=== PATIENT | female | born 1945 | race Caucasian/White ===

== ENCOUNTER → 2017-09-01 | Outpatient (CLI) | payer MEDICARE ==
[~2017-09-01] MED LIST: ASPI81TA23 PO; CALCTAB33 PO; CENTCHW4 CHEW; METO25TA3 PO; PREN29TA PO; PSYL575P2 PO; SYNT112T PO
[2017-09-01 09:50] LABS: PROTHROMBIN TIME - PATIENT 10.1 SEC (9.8-11.6)
[2017-09-01 09:52] LABS: BASOPHIL # 0.1 TH/MM3 (0-0.2); BASOPHIL % 1.4 % (0.0-2.0); EOSINOPHIL # 0.4 TH/MM3 (0-0.4); EOSINOPHIL % 5.1 % (0.0-4.0); HEMATOCRIT 36.4 % (35.0-46.0); HEMOGLOBIN 12.2 GM/DL (11.6-15.3); LYMPHOCYTE # 2.2 TH/MM3 (1.0-4.8); MEAN CELL VOLUME 90.6 FL (80.0-100.0); MEAN CORPUSCULAR HEMOGLOBIN 30.4 PG (27.0-34.0); MEAN CORPUSCULAR HGB CONC 33.6 % (32.0-36.0); MONO % 10.1 % (0.0-8.0); MONOCYTE # 0.9 TH/MM3 (0-0.9); NEUT % 58.4 % (16.0-70.0); PLATELET COUNT 237 TH/MM3 (150-450); RED BLOOD COUNT 4.01 MIL/MM3 (4.00-5.30); RED CELL DISTRIBUTION WIDTH 14.2 % (11.6-17.2); WHITE BLOOD COUNT 8.6 TH/MM3 (4.0-11.0)
[2017-09-01 10:13] LABS: BICARBONATE 30.2 MEQ/L (21.0-32.0); CALCIUM 8.8 MG/DL (8.5-10.1); CREATININE 1.01 MG/DL (0.50-1.00)
[2017-09-01 10:47] LABS: BACTERIA, URINE RARE /hpf; BILIRUBIN, URINE NEG (NEG); BLOOD, URINE NEG (NEG); GLUCOSE,URINE NEG (NEG); KETONE, URINE NEG (NEG); MUCUS URINE FEW /lpf (OCC); NITRITE,URINE NEG (NEG); PH, URINE 5.5 (5.0-8.5); SQUAMOUS EPITHELIAL CELL URINE <1 /hpf (0-5); URINE COLOR YELLOW (YELLW/STRAW); URINE LEUKOCYTE ESTERASE NEG (NEG)
== END ==
LOC: CPRE 08:08
PROVIDERS: ATTEND Orthopaedic Surgery Orthopaedic Surgery of the Spine
DX: Z01.812 Encounter for preprocedural laboratory examination (principal); M17.11 Unilateral primary osteoarthritis, right knee; Z01.818 Encounter for other preprocedural examination; E03.9 Hypothyroidism, unspecified; Z87.440 Personal history of urinary (tract) infections
CPT/HCPCS: 36415; 80048; 81001; 85025; 85610; 85730; 87086

== ENCOUNTER → 2017-09-01 | Outpatient (CLI) | payer MEDICARE ==
[2017-09-01 10:23] LABS: FREE T4 1.15 NG/DL (0.76-1.46)
== END ==
LOC: CLAB 08:22
PROVIDERS: ATTEND Family Medicine
DX: Z01.818 Encounter for other preprocedural examination (principal); E03.9 Hypothyroidism, unspecified; Z87.440 Personal history of urinary (tract) infections
CPT/HCPCS: 84439; 84443

== ENCOUNTER 2017-09-12 07:47 | Inpatient (IN) | payer MEDICARE ==
[~2017-09-12] VITALS: Ht 162.6 cm; Wt 79.2 kg
[2017-09-12] MEDS ORDERED: METOPROLOL TARTRATE 25 MG TAB PO PRN (08:45)
[2017-09-12] MEDS ORDERED: SODIUM CHLORIDE 0.9% IV SCH (08:45)
[2017-09-12] MEDS ORDERED: LACTATED RINGER'S 1000 ML IV PRN (08:45)
[2017-09-12] MEDS ORDERED: SODIUM CHLORID 0.9% 500 ML IV PRN (08:45)
[2017-09-12] MEDS ORDERED: INSULIN HUMAN REGULAR 1,000 UNITS/10 ML VIAL SQ PRN (08:45)
[2017-09-12] MEDS ORDERED: VANCOMYCIN 1 GM/200 ML PREMIX IV SCH (08:45)
[2017-09-12] MEDS ORDERED: TRANEXAMIC ACID IV SCH (08:45)
[2017-09-12] MEDS ORDERED: POVIDONE IODINE 5% (ANTISEPSIS KIT) 4 APPLICATIONS EACH NARE PRN (08:45)
[2017-09-12] MEDS ORDERED: ceFAZolin 2 GM PREMIX 50 ML IV SCH (08:45)
[2017-09-12] MEDS ORDERED: EXPAREL PERI-ARTICULAR INJECTION (TOTAL VOL. 60 ML) P-ARTICULR SCH ×2 (08:45)
[2017-09-12] MEDS ORDERED: ACETAMINOPHEN 1000 MG/100 ML 100 ML IV ONE (10:03)
[2017-09-12] MEDS ORDERED: SODIUM CHLORIDE 0.9% 20 ML VIAL ONE (10:18)
[2017-09-12] MEDS ORDERED: GENTAMICIN SULFATE 80 MG/2 ML VIAL ONE (10:18)
[2017-09-12] MEDS ORDERED: ONDANSETRON HCL 4 MG/2 ML VIAL IV ONE (12:00)
[2017-09-12] MEDS ORDERED: SUCCINYLCHOLINE CHLORIDE 100 MG/5 ML SYRINGE IV PUSH ONE (12:00)
[2017-09-12] MEDS ORDERED: PROPOFOL 200 MG/20 ML AMP IV ONE (12:00)
[2017-09-12] MEDS ORDERED: NEOSTIGMINE 5 MG/5 ML SYRINGE IV PUSH ONE (12:00)
[2017-09-12] MEDS ORDERED: GLYCOPYRROLATE 1 MG/5 ML SYRINGE IV PUSH ONE (12:00)
[2017-09-12] MEDS ORDERED: DEXAMETHASONE SOD PHOS 4 MG/ML VIAL IV ONE (12:00)
[2017-09-12] MEDS ORDERED: ePHEDrine/NS 25 MG/5 ML SYRINGE IV ONE (12:00)
[2017-09-12] MEDS ORDERED: ROCURONIUM INJ 50 MG/5 ML SYRINGE IV PUSH ONE (12:00)
[2017-09-12] MEDS ORDERED: LIDOCAINE HCL 1% PF 5 ML SYRINGE OTHER ONE (12:00)
[2017-09-12] MEDS ORDERED: BUPIVACAINE HCL PF 0.25% 30 ML VIAL INFIL ONE (12:11)
--- NOTE | 2017-09-12 13:44 | PD.OP ---
cc: Ruddy Mao MD Operative Report Date of Surgery: September 12, 2017 Preoperative Diagnosis: Osteoarthritis right knee. Varus deformity right knee Postoperative Diagnosis: Same Procedure: Right total knee replacement arthroplasty, posterior stabilized Anesthesia: General with local for regional pain control Surgeon: Ruddy Mao Vest Presser(s): LIDYA Zacarias Operation and Findings: EBL: 50 INDICATION: This patient presents with long-standing arthritis of the knee. She also has a significant 12 varus deformity with subluxation of the tibia and some widening of the lateral joint line with the deformity attachment record documents conservative measures. The patient now presents for surgical treatment. NOTE: Yael Zacarias PA-C was present for the entire surgical procedure as my first line production supervisor. In my medical opinion her skill and care was necessary for proper management of this patient. TOURNIQUET TIME: 67 minutes COMPANY: [employer] FEMUR: Size 6, posterior stabilized TIBIA: Size 5, fixed-bearing PATELLA: 32 mm POLYETHYLENE INSERT: 12 mm PROCEDURE: This patient was brought the operating room and anesthetized in the supine position. The patient was positioned supine on the table. The tourniquet was placed about the thigh, and the leg was scrubbed with alcohol followed by Hibiclens followed by ChloraPrep and draped sterilely. A timeout was done, and antibiotics were given. After exsanguination the tourniquet was inflated to 250 mmHg. An anterior incision was made and a median parapatellar arthrotomy was performed. The patella was released laterally and subluxed allowing freehand cut of the patella which was then sized. A metal cap was placed over the exposed patellar surface for protection. A rotor pilot hole was placed in the distal femur allowing a 6 valgus cut removing 10 mm from the distal femur. Anterior posterior and chamfer cuts were made. The posterior stabilize osteotomy was made. The attention was directed to the tibia. Retractors were positioned. The external alignment guide was used allowing the lateral tibia to be used as referencing guide and cut utilizing an oscillating saw taking care to avoid any injury to the surrounding soft tissues. This was sized properly. We needed to do a extended medial and posterior medial release because of the fixed varus deformity. Trial reduction showed that the insert fit nicely. The patient had range of motion extension 0 flexion 125 . A medial release was necessary. The bony surfaces prepared. On the back table 2 packets of methylmethacrylate were mixed. The components were cemented. Excess cement was removed. The tourniquet let down and hemostasis was controlled. The final plastic insert was inserted. Range of motion was the same as previously noted. A drain was brought through a separate stab incision. The arthrotomy was repaired with interrupted #1 Vicryl suture, subcutaneous tissue 2-0 Vicryl suture and skin with metallic lamin A sterile dressing was applied. Sponge counts, needle counts and instrument counts were all correct. The patient tolerated procedure well and was taken to recovery in satisfactory condition. FINDINGS: There was evidence of a significant deformity to the patient's tibia and a varus deformity as result of the long-standing disease. A medial and posterior medial release was necessary to allow correction of the deformity. The final alignment appeared to be excellent Ruddy Mao MD September 12, 2017 13:44
[2017-09-12] MEDS ORDERED: NURSING INFORMATION XX PRN (13:45)
[2017-09-12] MEDS ORDERED: NALOXONE HCL 0.4 MG/ML AMP IV PUSH PRN (13:45)
[2017-09-12] MEDS ORDERED: PHARMACY INFORMATION XX ONE (13:45)
[2017-09-12] MEDS ORDERED: MORPHINE SULFATE 8 MG/ML INJ IM PRN (13:45)
[2017-09-12] MEDS ORDERED: Post-op Orders (for Pharmacy) XX ONE (13:45)
[2017-09-12] MEDS ORDERED: ECASA81 PO (13:52)
[2017-09-12] MEDS ORDERED: OXYC1TAB63 PO (13:52)
[2017-09-12] MEDS ORDERED: DO NOT ADM ANY ANTICOAGULANT DRUGS PRN (14:10)
[2017-09-12] MEDS ORDERED: MIDAZOLAM HCL 2 MG/2 ML VIAL ONE (14:25)
[2017-09-12] MEDS ORDERED: *morphine SULFATE 4 MG/ML PERIprocedure ONLY ONE ×2 (14:29→14:52)
--- NOTE | 2017-09-12 14:58 | RADRPT ---
EXAM DATE/TIME: 09/12/2017 15:32 [facility] COMPARISON: No previous studies available for comparison. INDICATIONS : Post-op right knee. MEDICAL HISTORY : None. SURGICAL HISTORY : None. ENCOUNTER: Initial ACUITY: 1 day PAIN SCORE: 0/10 LOCATION: Right Knee. FINDINGS: 2 views of the knee status post total knee arthroplasty demonstrate no the osseous structures. The t ibial component is cemented. Multiple skin lamin. Superficial and deep soft tissue gas. No metal lic foreign bodies. CONCLUSION: Expected postsurgical findings status post total knee arthroplasty. Neptali Silva MD on September 12, 2017 at 14:55 Board Certified Radiologist. This report was verified electronically.
[2017-09-12] MEDS ORDERED: ASPIRIN EC 81 MG TABEC PO ONE (15:00)
[2017-09-12] MEDS: LACTATED RINGER'S 1000 ML INJ 1,000 ML IV SCH (15:24)
[2017-09-12] MEDS ORDERED: ASPIRIN 81 MG CHEW TAB ONE (15:25)
[2017-09-12] MEDS ORDERED: *ONDANSETRON 4 MG VIAL PERIprocedural Use ONLY ONE (16:19)
[2017-09-12] MEDS ORDERED: ceFAZolin INJ 1,000 MG VIAL ONE (16:34)
[2017-09-12 17:02] VITALS: BP 130/55; PULSE 67; RESP 18; TEMP 95.4; O2SAT 97
[2017-09-12] MEDS: oxyCODONE/ACETAMINOPHEN 5 MG/325 MG TAB PO PRN (17:09)
[2017-09-12 20:00] VITALS: BP 130/60; PULSE 74; RESP 20; TEMP 97.7; O2SAT 93
[2017-09-12] MEDS: SENNOSIDES 8.6 MG TAB PO SCH (20:09)
[2017-09-12] MEDS: ASPIRIN EC 81 MG TABEC PO SCH (20:10)
[2017-09-12] MEDS: METOPROLOL TARTRATE 25 MG TAB PO SCH (20:10)
[2017-09-12] MEDS: MAGNESIUM HYDROXIDE SUSP 30 ML CUP PO SCH (20:11)
[2017-09-12] MEDS ORDERED: TEMAZEPAM 15 MG CAP PO PRN (21:00)
[2017-09-13] VITALS: BP 122/60; PULSE 78; RESP 20; TEMP 97.9; O2SAT 95
[2017-09-13] MEDS: LACTATED RINGER'S 1000 ML INJ 1,000 ML IV SCH ×2 (01:13→16:30)
[2017-09-13 04:00] VITALS: BP 110/51; PULSE 78; RESP 20; TEMP 98; O2SAT 94
[2017-09-13] MEDS: LEVOTHYROXINE SODIUM 112 MCG TAB PO SCH (05:10)
[2017-09-13] MEDS: oxyCODONE/ACETAMINOPHEN 5 MG/325 MG TAB PO PRN ×2 (05:10→11:08)
[2017-09-13 07:01] LABS: HEMATOCRIT 31.8 % (35.0-46.0); HEMOGLOBIN 10.6 GM/DL (11.6-15.3)
[2017-09-13] MEDS: METOPROLOL TARTRATE 25 MG TAB PO SCH ×2 (08:03→20:49)
[2017-09-13] MEDS: ASPIRIN EC 81 MG TABEC PO SCH ×2 (08:04→20:49)
[2017-09-13] MEDS: MAGNESIUM HYDROXIDE SUSP 30 ML CUP PO SCH ×2 (08:04→20:49)
[2017-09-13 08:15] VITALS: BP 103/47; PULSE 68; RESP 16; TEMP 98.4; O2SAT 94
[2017-09-13] MEDS ORDERED: WALKER WHEELS/F1 MIS (08:33)
[2017-09-13] MEDS ORDERED: COMMODE 3-IN-11 MIS (08:34)
--- NOTE | 2017-09-13 08:35 | HHI.DCPOC ---
Discharge Care Plan Diagnosis: (1) Osteoarthritis of right knee Your Health Problems Are: Difficulty with ADL Incision/Drains Swelling Goals to Promote Your Health * To prevent worsening of your condition and complications * To maintain your health at the optimal level Directions to Meet Your Goals Take your medications as prescribed Follow your dietary instruction Follow activity as directed Keep your appointments as scheduled Take your immunizations and boosters as scheduled If your symptoms worsen call your PCP, if no PCP go to Urgent Care Center or Emergency Room Smoking is Dangerous to Your Health. Avoid second hand smoke Call the 24-hour hour crisis hotline for domestic abuse at Yarelis Huddleston September 13, 2017 08:34
[2017-09-13] MEDS ORDERED: INFLUENZA VIRUS VACCINE (QUADRIVALENT) 0.5 ML SYR IM ONE (10:00)
[2017-09-13 12:24] VITALS: BP 94/47; PULSE 61; RESP 18; TEMP 97.8; O2SAT 94
--- NOTE | 2017-09-13 13:02 | PD.ORT.PN ---
Subjective Subjective Remarks Sleeping when I enter the room. Moderate right knee pain. She states her ' buttocks aches'. No other concerns. No new CP or SOB. Objective Vitals Vital Signs Date Time Temp Pulse Resp B/P (MAP) Pulse Ox O2 Delivery O2 Flow Rate FiO2 09/13/17 12:24 97.8 61 18 94/47 (63) 94 09/13/17 12:17 17 09/13/17 08:15 98.4 68 16 103/47 (65) 94 09/13/17 04:00 98.0 78 20 110/51 (70) 94 09/13/17 00:00 97.9 78 20 122/60 (80) 95 09/12/17 20:00 97.7 74 20 130/60 (83) 93 09/12/17 17:02 95.4 67 18 130/55 (80) 97 09/12/17 16:45 97.8 86 16 127/58 (81) 98 Nasal Cannula 2 09/12/17 16:00 84 17 133/63 (86) 98 Nasal Cannula 2 09/12/17 15:30 69 17 125/60 (81) 98 Nasal Cannula 2 09/12/17 15:00 67 18 123/58 (79) 99 Nasal Cannula 2 09/12/17 14:45 63 17 126/56 (79) 97 Nasal Cannula 2 09/12/17 14:30 61 15 128/60 (82) 98 Nasal Cannula 2 09/12/17 14:15 68 16 132/62 (85) 98 Nasal Cannula 2 09/12/17 14:08 97.6 78 15 135/62 (86) 98 Nasal Cannula 2 I/O 09/12/17 09/12/17 09/12/17 09/13/17 09/13/17 09/13/17 07:00 15:00 23:00 07:00 15:00 23:00 Intake Total 700 ml 175 ml 300 ml Output Total 50 ml 0 ml Balance 650 ml 175 ml 300 ml Intake Oral 300 ml IV Total 175 ml Other 700 ml Output Urine Total 0 ml Estimated Blood Loss 50 ml Result Diagram: 09/13/17 0614 Imaging Last 24 hours Impressions Knee X-Ray 09/12/17 5634 Signed Impressions: Service Date/Time: Tuesday, September 12, 2017 15:32 - CONCLUSION: Expected postsurgical findings status post total knee arthroplasty. Neptali Silva MD Objective Remarks Laying in bedside chair NAD, sleeping VSS RLE Knee dressing c/d/i, no obvious drainage, mild swelling, no erythema +motor at distal, +sens, +nvi Neg homans Assessment & Plan Ortho Post Op Day #: 1 Problem List: Assessment and Plan pod#1 s/p R TKA Ortho stable. Pain moderately controlled. Continue po meds. ASA 81mg PT - WBAT RLE. I highly encouraged walking as her daughter stated yesterday that she is very sedentary. R TKA protocol Hold dressing changes unless saturated. IS encouraged. D/C planning, rehab monday. Yarelis Huddleston September 13, 2017 13:02
[2017-09-13 16:18] VITALS: BP 112/55; PULSE 67; RESP 17; TEMP 98.4; O2SAT 93
[2017-09-13 19:52] VITALS: BP 108/56; PULSE 73; RESP 17; TEMP 98.7; O2SAT 94
[2017-09-13] MEDS: SENNOSIDES 8.6 MG TAB PO SCH (20:49)
[2017-09-14] VITALS: BP 109/54; PULSE 73; RESP 20; TEMP 98.1; O2SAT 94
[2017-09-14] MEDS: LEVOTHYROXINE SODIUM 112 MCG TAB PO SCH (05:49)
[2017-09-14] MEDS: LACTATED RINGER'S 1000 ML INJ 1,000 ML IV SCH (05:54)
[2017-09-14 07:38] VITALS: BP 121/58; PULSE 88; RESP 18; TEMP 99.9; O2SAT 91
--- NOTE | 2017-09-14 08:43 | PD.ORT.PN ---
Subjective Subjective Remarks Resting comfortably. Still states moderate right knee pain. No new complaints. No new CP or SOB. Objective Vitals Vital Signs Date Time Temp Pulse Resp B/P (MAP) Pulse Ox O2 Delivery O2 Flow Rate FiO2 09/14/17 07:38 99.9 88 18 121/58 (79) 91 09/14/17 00:00 98.1 73 20 109/54 (72) 94 09/13/17 19:52 98.7 73 17 108/56 (73) 94 09/13/17 16:18 98.4 67 17 112/55 (74) 93 09/13/17 12:24 97.8 61 18 94/47 (63) 94 09/13/17 12:17 17 I/O 09/13/17 09/13/17 09/13/17 09/14/17 09/14/17 09/14/17 07:00 15:00 23:00 07:00 15:00 23:00 Intake Total 300 ml 960 ml 200 ml Output Total 120 ml Balance 300 ml 960 ml 80 ml Intake Oral 300 ml 960 ml 200 ml Output Urine Total 120 ml # Voids 3 # Bowel Movements 0 0 Result Diagram: 09/13/17 0614 Imaging Last 24 hours Impressions Knee X-Ray 09/12/17 1344 Signed Impressions: Service Date/Time: Tuesday, September 12, 2017 15:32 - CONCLUSION: Expected postsurgical findings status post total knee arthroplasty. Neptali Silva MD Objective Remarks Laying in bed NAD VSS RLE Knee dressing c/d/i, no obvious drainage, mild swelling, no erythema +motor at distal, +sens, +nvi Neg homans Assessment & Plan Ortho Post Op Day #: 2 Problem List: Assessment and Plan pod#2 s/p R TKA Ortho stable. Pain moderately controlled. Continue po meds. ASA 81mg PT - WBAT RLE. I highly encouraged walking as her daughter stated previously that she is very sedentary. R TKA protocol Hold dressing changes unless saturated. IS encouraged. D/C planning, rehab tomorrow. Case management working on placement. Yarelis Huddleston September 14, 2017 08:43
--- NOTE | 2017-09-14 09:01 | HHI.DS ---
Discharge Summary Admission Date September 12, 2017 at 07:47 Discharge Date: September 15, 2017 Admitting Diagnosis see below Diagnosis: (1) Osteoarthritis of right knee Diagnosis: Principal ICD Codes: M17.11 - Unilateral primary osteoarthritis, right knee Procedures Right total knee arthroplasty Brief History This is a 71 year old female patient with a multiyear history of right knee pain. Imaging studies showed severe arthritis. Total knee arthroplasty was suggested several years ago but she declined at that time. She has pursued conservative measures including use of a cane or walker, use of a knee brace, diclofenac, and injections. Her function has declined to an extent that now her family is greatly concerned over balance and falls. Surgical treatment was again recommended in the form of right total knee arthroplasty. She was cleared by her medical physician and agreed to press forward. She now presents for the above. CBC/BMP: 09/13/17 0614 Significant Findings Laboratory Tests Test 09/13/17 06:14 Hemoglobin 10.6 GM/DL (11.6-15.3) Hematocrit 31.8 % (35.0-46.0) PE at Discharge Laying in bed NAD VSS RLE Knee dressing c/d/i, no obvious drainage, mild swelling, no erythema +motor at distal, +sens, +nvi Neg homans Pt Condition on Discharge: Stable Discharge Disposition: Discharge to SNF Discharge Instructions Diet Instructions: As Tolerated, No Restrictions, High Fiber Diet Activities You Can Perform: Weight Bearing as [place]fr[place] Activities to Avoid: Strenuous Activity Additional Activity Instruc.: TKA protocol New Medications: Commode 3-in-1 (Commode 3-in-1) 1 Mis Mis EA .XX DIRECTED, #1 0 Refills Walker with Front Wheels (Walker with Front Wheels) 1 Mis Mis EA .XX DIRECTED, #[address] (Aspirin DR) 81 Mg Tabdr 81 MG PO ONCE for Prevent Blood Clot, #60 TAB Oxycodone HCl/Acetaminophen (Oxycodone-Acetaminophen 5-325) 5 Mg-325 Mg Tablet 1 TAB PO Q4H PRN for Pain, #42 TAB Continued Medications: Calcium Carbonate-Vitamin D W/Minerals (Calcium 600+D Plus Minerals) 600-400 Mg- Unit Tab 1 TAB PO BID for Nutritional Supplement, TAB 0 Refills Levothyroxine (Synthroid) 112 Mcg Tab 112 MCG PO DAILY for Thyroid, #30 TAB 0 Refills Metoprolol Tartrate (Metoprolol Tartrate) 25 Mg Tab 25 MG PO BID, #60 TAB 0 Refills Multiple Vitamins W/ Minerals (Centrum) 1 Chew 1 TAB CHEW DAILY for Nutritional Supplement, TAB 0 Refills Vit-Iron Carbonyl ( Plus Iron 29-1 mg) 29 Mg Iron-1 Mg Tab 1 TAB PO DAILY for Nutritional Supplement, #30 TAB 0 Refills Psyllium Seed (with Sugar) (Metamucil Powder) 575 Gm Powder 1 PACKET PO DAILY Discontinued Medications: Aspirin DR (Aspirin EC) 81 Mg Tabdr 81 MG PO DAILY, TAB 0 Refills Yarelis Huddleston September 14, 2017 09:01
[2017-09-14] MEDS: METOPROLOL TARTRATE 25 MG TAB PO SCH ×2 (09:05→20:53)
[2017-09-14] MEDS: ASPIRIN EC 81 MG TABEC PO SCH ×2 (09:05→20:53)
[2017-09-14] MEDS: MAGNESIUM HYDROXIDE SUSP 30 ML CUP PO SCH ×2 (09:05→20:53)
[2017-09-14] MEDS: oxyCODONE/ACETAMINOPHEN 5 MG/325 MG TAB PO PRN (09:10)
[2017-09-14 11:48] VITALS: BP 115/55; PULSE 88; RESP 18; TEMP 98.1; O2SAT 93
[2017-09-14 15:53] VITALS: BP 106/41; PULSE 74; RESP 18; TEMP 97.9; O2SAT 95
[2017-09-14 20:00] VITALS: BP 123/56; PULSE 95; RESP 20; TEMP 99.4; O2SAT 92
[2017-09-14] MEDS: SENNOSIDES 8.6 MG TAB PO SCH (20:58)
[2017-09-15] VITALS: BP 121/62; PULSE 105; RESP 20; TEMP 98.4; O2SAT 94
[2017-09-15] MEDS: LEVOTHYROXINE SODIUM 112 MCG TAB PO SCH (05:14)
[2017-09-15 07:37] VITALS: BP 148/67; PULSE 84; RESP 19; TEMP 98.1; O2SAT 93
--- NOTE | 2017-09-15 08:21 | PD.ORT.PN ---
Subjective Subjective Remarks No new complaints. Pain 'pretty well' controlled. No new leg pain. Questions about rehab today. Objective Vitals Vital Signs Date Time Temp Pulse Resp B/P (MAP) Pulse Ox O2 Delivery O2 Flow Rate FiO2 09/15/17 07:37 98.1 84 19 148/67 (94) 93 09/15/17 00:00 98.4 105 20 121/62 (81) 94 09/14/17 20:00 99.4 95 20 123/56 (78) 92 09/14/17 15:53 97.9 74 18 106/41 (62) 95 09/14/17 11:48 98.1 88 18 115/55 (75) 93 I/O 09/14/17 09/14/17 09/14/17 09/15/17 09/15/17 09/15/17 07:00 15:00 23:00 07:00 15:00 23:00 Intake Total 200 ml 850 ml 580 ml Output Total 120 ml Balance 80 ml 850 ml 580 ml Intake Oral 200 ml 850 ml 580 ml Output Urine Total 120 ml # Voids 4 5 # Bowel Movements 0 0 0 Result Diagram: 09/13/17 0614 Imaging Last 24 hours Impressions Knee X-Ray 09/12/17 1344 Signed Impressions: Service Date/Time: Tuesday, September 12, 2017 15:32 - CONCLUSION: Expected postsurgical findings status post total knee arthroplasty. Neptali Silva MD Procedures Right total knee arthroplasty Objective Remarks Laying in bed on bedpan NAD VSS RLE Knee dressing c/d/i, no obvious drainage, mild swelling, no erythema +motor at distal, +sens, +nvi Neg homans Assessment & Plan Ortho Post Op Day #: 3 Problem List: (1) Osteoarthritis of right knee ICD Codes: M17.11 - Unilateral primary osteoarthritis, right knee Qualifiers: Qualified Codes: M17.11 - Unilateral primary osteoarthritis, right knee Assessment and Plan pod#3 s/p R TKA Ortho stable. Ok to d/c to SNF today. Pain moderately controlled. Continue po meds. ASA 81mg PT - WBAT RLE. I highly encouraged walking as her daughter stated previously that she is very sedentary. R TKA protocol Hold dressing changes unless saturated. IS encouraged. F/U in 2 weeks as scheduled. Yarelis Huddleston September 15, 2017 08:21
[2017-09-15] MEDS: ASPIRIN EC 81 MG TABEC PO SCH (08:25)
[2017-09-15] MEDS: METOPROLOL TARTRATE 25 MG TAB PO SCH (08:25)
[2017-09-15] MEDS: MAGNESIUM HYDROXIDE SUSP 30 ML CUP PO SCH (08:25)
[2017-09-15] MEDS: oxyCODONE/ACETAMINOPHEN 5 MG/325 MG TAB PO PRN (08:52)
[2017-09-15 12:00] VITALS: BP 117/76; PULSE 73; RESP 18; TEMP 98.2; O2SAT 95
== END 2017-09-15 14:43 | DRG 470 ==
LOC: HSDI 07:47 → EDUNIT# 10:30 → N06A 17:01
PROVIDERS: ADMIT Orthopaedic Surgery Orthopaedic Surgery of the Spine; ATTEND Orthopaedic Surgery Orthopaedic Surgery of the Spine
PROC: 0SRC0J9 Replacement of Right Knee Joint with Synthetic Substitute, Cemented, Open Approach (ICD-10-PCS; principal; 2017-09-12 11:17)
DX: M17.11 Unilateral primary osteoarthritis, right knee (principal); M21.161 Varus deformity, not elsewhere classified, right knee; Z79.82 Long term (current) use of aspirin
CPT/HCPCS: 73560; 85014; 85018; 86850; 86900; 86901; 86920; 94150; C1776; J0131; J0330; J0690; J1100; J1580; J2250; J2270; J2405; J2710; J3010; J3370; J7120; L1830